=== PATIENT | female | born 1980 | race Caucasian/White ===

== ENCOUNTER 2025-01-08 17:52 | Emergency (ER) | payer BC ==
--- OUTSIDE RECORDS SUMMARY | 2025-01-08 17:58 | XMS REPORT | Continuity of Care Document ---
Author Name Unknown Address [address] [place] [address] [facility] [place] Address 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 Role Phone Caseyradhaiván Jennifer MORROW Primary Care Physician KATINA VICTORIA Attending Clinician Unavailable SHEA BRICEÑO Attending Clinician Unavailable SHILO MUNROE Attending Clinician Unavailab SHILO Carias Attending Clinician Unavailab le Doctor Unassigned, Smiley Attending Clinician U Shilo Morin DO Attending Clinician [phone] SHERIDAN ANTONY Attending Clinician Unavailable Sheridan Antony PA-C Attending Clinician [phone] Unknown, Attending Attending Clinician Unavailab Mikey Masters Attending Clinician [phone] MIKEY RUBIN Attending Clinician Unavailable KATINA VICTORIA Attending Clinician Unavailable Doctor Unassigned, Smiley Attending Clinician U arianna 2, [facility] Attending Clinician Unavailable Pob, [facility] Main Attending Clinician UnavailLin Mai MD Attending Clinician [phone] LIN WEEKS Attending Clinician UnavailSheridan Olmedo PA-C Attending Clinician [phone] FERNANDO IBARRA Attending Clinician Unavailab [facility] Attending Clinician Un available Unknown, Attending Attending Clinician Unavailab le UNKNOWN, ATTENDING Attending Clinician Unavailab Mikey Masters Attending Clinician RACHEL POSEY Attending Clinician Unavailable KATINA VICTORIA Admitting Clinician Unavailable SHEA BRICEÑO Admitting Clinician Unavailable SHERIDAN ANTONY Admitting Clinician Unavailable Payers Payer Name Policy Type Policy Number Effective Date Expirati on Date Source [place] [employer] [facility] [id number] 00:00:00 Problems Condition Name Condition Details Condition Category Status Onset Date Resolution Date Last Treatment Date Treating Clinician Comments Source 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) Disease Active 2021-10 00:00: 00 [facility] Severe dysplasia of cervix (DENISE III) Severe dysplasia of cervix (DENISE III) Disease Active 2021-10 00:00: 00 [facility] Severe dysplasia of cervix (DENISE III) Severe dysplasia of cervix (DEINSE III) Disease Active 2021-10 00:00: 00 [facility] Morbid obesity with body mass index of 40.0-49.9 Morbid obesity with body mass index of 40.0-49.9 Disease Active 2021-10 00:00: 00 [facility] Contracept an management Contracept an management Disease Active 2014-10 00:00: 00 [facility] Anxiety Anxiety Disease Active 2014-10 00:00: 00 [facility] HTN (hypertens ion) HTN (hypertens ion) Disease Active 2014-10 00:00: 00 [facility] IBS (irritable bowel syndrome) IBS (irritable bowel syndrome) Disease Active 2014-10 00:00: 00 [facility] Dermatophy tosis of nail Dermatophy tosis of nail Disease Active 2014-10 00:00: 00 [facility] Allergies, Adverse Reactions, Alerts Allergy Name Allergy Type Status Severity Reaction(s) Onset Date Inactive Date Treating Clinician Comments Source NO KNOWN ALLERGIE S Drug Class Active [facility] Social History Social Habit Start Date Stop Date Quantity Comments Source Sexual orientation U [facility] Cigarettes smoked current (pack per day) - Reported 2024-10-12 00:00:00 2024-10-12 00:00:00 [facility] Cigarette pack-years 2024-10-12 00:00:00 2024-10-12 00:00:00 [facility] Tobacco use and exposure 2024-10-12 00:00:00 2024-10-12 00:00:00 Smokeless tobacco non-user [facility] History of Social function 2024-10-12 00:00:00 2024-10-12 00:00:00 [facility] Alcoholic beverage intake 2024-10-12 00:00:00 2024-10-12 00:00:00 0 /d [facility] Exposure to SARS-CoV-2 (event) 2023-01-12 00:00:00 2023-01-22 13:24:00 Not sure [facility] Alcohol intake 2023-01-22 00:00:00 2023-01-22 00:00:00 0 /d [facility] Tobacco Comment 2022-08-01 00:00:00 2022-08-01 00:00:00 5 cigarettes a day on and off 10 years [facility] History of tobacco use 2006-02-14 00:00:00 2016-02-15 00:00:00 Cigarette Smoker [facility] Sex assigned at 1980 00:00:00 1980 00:00:00 [facility] Smoking Status Start Date Stop Date Source Ex-smoker 2024-10-12 00:00:00 2024-10-12 00:00:00 [facility] Medications Ordered Medication Name Filled Medication Name Start Date Stop Date Current Medication? Ordering Clinician Indication Dosage Frequency Signature (SIG) Comments Components Source budesonide- formoteroL (SYMBICORT) 160-4.5 mcg/actuati on inhaler 2023-10 00:00: 00 Yes [id number] 2{puff} Inhale 2 Puffs in the morning and 2 Puffs in the evening. [facility] albuterol 90 mcg/actuati on inhaler 2023-10 00:00: 00 Yes [id number] 2{puff} Inhale 2 Puffs every 6 (six) hours as needed for Wheezing or Shortness of Breath. [facility] naproxen 500 mg tablet 07-19 00:00: 00 10-12 00:00 :00 No [id number] 500mg Take 1 tablet by mouth in the morning and 1 tablet in the evening. Take with meals. [facility] predniSONE 20 mg tablet 07-19 00:00: 00 07-25 04:59 :00 No [id number] 20mg Take 1 tablet by mouth in the morning and 1 tablet in the evening. Do all this for 5 days. [facility] dexamethaso ne (DECADRON) injection 10 mg 07-10 22:45: 00 07-10 21:53 :00 No [id number] 10mg 10 mg, Intramuscu lar, ONCE, 1 dose, On Sat07/10/24 at 1745, Routine [facility] ipratropium -albuteroL (DUONEB) 0.5 mg-3 mg(2.5 mg base)/3 mL nebulizer solution 3 mL 07-10 22:30: 00 07-10 21:54 :00 No [id number] 3mL 3 mL, Inhalation , ONCE, 1 dose, On Sat07/10/24 at 1730, Routine [facility] albuterol (PROVENTIL) 2.5 mg /3 mL (0.083 %) nebulizer solution 2.5 mg 07-10 22:30: 00 07-10 21:54 :00 No [id number] 2.5mg 2.5 mg, Inhalation , ONCE, 1 dose, On Sat07/10/24 at 1730, Routine [facility] predniSONE 20 mg tablet 07-10 00:00: 00 07-16 04:59 :00 No [id number] 40mg Take 2 tablets by mouth in the morning for 5 days. [facility] medroxyPROG ESTERone (PROVERA) 10 mg tablet 04-14 00:00: 00 04-25 04:59 :00 No [id number] 10mg Take 1 tablet by mouth in the morning for 10 days. [facility] LORazepam (ATIVAN) 1 mg tablet 11-12 00:00: 00 11-13 05:59 :00 No [id number] 1mg Take 1 tablet by mouth once now for 1 dose. [facility] montelukast 10 mg tablet 2021-10 00:00: 00 Yes TAKE ONE (1) TABLET(S) BY MOUTH DAILY AT BEDTIME. [facility] LAY OUT DRAFTER THYROID 15 mg tablet 2021-10 00:00: 00 07-19 00:00 :00 No 15mg Take 15 mg by mouth every morning. [facility] multivitami n tablet 2021-10 14:51: 42 09-11 00:00 :00 No 1{tbl} Take 1 tablet by mouth daily. [facility] atenoloL 50 mg tablet 2021-10 10:39: 46 Yes 50mg Take 50 mg by mouth in the morning and 50 mg in the evening. [facility] escitalopra m oxalate (LEXAPRO) 10 mg tablet 2021-10 10:39: 46 07-19 00:00 :00 No 10mg Take 10 mg by mouth in the morning. [facility] dextroamphe tamine-amph etamine 10 mg tablet 2021-10 10:39: 46 07-19 00:00 :00 No 10mg Take 10 mg by mouth every morning. [facility] LOESTRIN FE 1 mg-20 mcg (21)/75 mg (7) tablet 2021-10 00:00: 00 04-14 00:00 :00 No [id number] 1{tbl} Take 1 tablet by mouth in the morning. [facility] nystatin 100,000 unit/mL suspension 2021-10 00:00: 00 09-19 05:59 :00 No [id number] Take 5 mL by mouth 4 (four) times daily for 7 days. Gargle and swish around in mouth, retain in mouth as long as as possible and swallow. [facility] nystatin 100,000 unit/gram cream 2021-10 00:00: 00 09-11 00:00 :00 No [id number] Apply to area(s) 2 (two) times daily. [facility] multivitami n tablet 2021-10 16:35: 38 Yes 1{tbl} Take 1 tablet by mouth daily. [facility] amoxicillin -clavulanat e (AUGMENTIN) 875-125 mg per tablet 07-12 00:00: 00 07-23 04:59 :00 No [id number] 1{tbl} Take 1 tablet by mouth in the morning and 1 tablet in the evening. Do all this for 10 days. [facility] escitalopra m oxalate 20 mg tablet 9- 00:00: 00 09-11 00:00 :00 No 20mg Take 20 mg by mouth in the morning. [facility] &lt 8-03 00:00: 00 No 20 Dose Unknown 8-03 00:00: 00 No metoprolol succinate ER 50 mg tablet,exte nded release 24 hr 6-13 00:00: 00 No 1mg Dose Unknown 6-13 00:00: 00 No TAKE 1 TABLET BY MOUTH EVERY DAY 6-08 00:00: 00 No &lt 0 6-08 00:00: 00 No Lexapro 20 mg tablet 5-30 00:00: 00 No 1mg metoprolol succinate ER 50 mg tablet,exte nded release 24 hr 3-26 00:00: 00 No 1mg metoprolol succinate ER 50 mg tablet,exte nded release 24 hr 3-18 00:00: 00 No 1mg Lexapro 20 mg tablet 2022-0 3-18 00:00: 00 No 1mg Dose Unknown 0 3-18 00:00: 00 No Dose Unknown 0 3-18 00:00: 00 No Dose Unknown 0 3-18 00:00: 00 No Dose Unknown 0 3-05 00:00: 00 No metoprolol succinate ER 50 mg tablet,exte nded release 24 hr 0 2-28 00:00: 00 No 1mg Dose Unknown 0 2-03 00:00: 00 No Lexapro 20 mg tablet 1 2-30 00:00: 00 No 1mg Depo-Lens Examiner a 150 mg/mL intramuscul ar syringe 1 2-30 00:00: 00 No 1mg/mL Dose Unknown 2020-10 0-02 00:00: 00 No Depo-Lens Examiner a 150 mg/mL intramuscul ar syringe 0 6-29 00:00: 00 No 1mg/mL Dose Unknown 0 6-18 00:00: 00 No Dose Unknown 0 6-18 00:00: 00 No Provera 10 mg tablet 0 4-15 00:00: 00 No 1mg metoprolol succinate ER 50 mg tablet,exte nded release 24 hr 0 3-31 00:00: 00 No 1mg Dose Unknown 0 3-31 00:00: 00 No Diflucan 150 mg tablet 0 429 00:00: 00 No 1mg clarithromy denise 500 mg tablet 16 00:00: 00 No 1mg amoxicillin 500 mg tablet 16 00:00: 00 No 2mg lansoprazol e 30 mg capsule,del ayed release 16 00:00: 00 No 1mg Dose Unknown 15 00:00: 00 No prednisone 20 mg tablet 07-09 00:00: 00 No 2mg azithromyci n 250 mg tablet 07-09 00:00: 00 No mg prednisone 20 mg tablet 02-04 00:00: 00 No mg benzonatate 200 mg capsule 02-04 00:00: 00 No 1mg ProAir HFA 90 mcg/actuati on aerosol inhaler 02-04 00:00: 00 No 12mcg/a ctuatio n azithromyci n 250 mg tablet 02-04 00:00: 00 No mg clotrimazol e 1 % topical cream 2017-10 00:00: 00 No 1% Zithromax Z-Abelardo 250 mg tablet 2017-10 00:00: 00 No mg Tessalon Perles 100 mg capsule 2017-10 00:00: 00 No 1mg Diflucan 150 mg tablet 04-24 00:00: 00 No 1mg multivitami n tablet 2015-10 08:31: 51 Yes 1{tbl} Take 1 tablet by mouth daily. [facility] hyoscyamine (LEVSIN) 0.125 mg tablet 03-06 00:00: 00 09-11 00:00 :00 No [id number] .125mg Take 1 tablet by mouth as needed for Pain (scale 7-10). [facility] Immunizations Ordered Immunization Name Filled Immunization Name Date Status Comments Source SARS-COV-2 COVID-19 CASSANDRA/J&J VACCINE 2021-10-10 00:00:00 Completed [facility] Influenza Virus Vaccine 2021-10-10 00:00:00 Completed [facility] SARS-COV-2 COVID-19 CASSANDRA/J&J VACCINE 2021-10-10 00:00:00 Completed [facility] Influenza Virus Vaccine 2021-10-10 00:00:00 Completed [facility] SARS-COV-2 COVID-19 CASSANDRA/J&J VACCINE 2021-10-10 00:00:00 Completed [facility] Influenza Virus Vaccine 2021-10-10 00:00:00 Completed [facility] SARS-COV-2 COVID-19 CASSANDRA/J&J VACCINE 2021-10-10 00:00:00 Completed [facility] Influenza Virus Vaccine 2021-10-10 00:00:00 Completed [facility] SARS-COV-2 COVID-19 CASSANDRA/J&J VACCINE 2021-10-10 00:00:00 Completed [facility] Influenza Virus Vaccine 2021-10-10 00:00:00 Completed [facility] SARS-COV-2 COVID-19 CASSANDRA/J&J VACCINE 2021-10-10 00:00:00 Completed [facility] Influenza Virus Vaccine 2021-10-10 00:00:00 Completed [facility] SARS-COV-2 COVID-19 CASSANDRA/J&J VACCINE 2021-10-10 00:00:00 Completed [facility] Influenza Virus Vaccine 2021-10-10 00:00:00 Completed [facility] SARS-COV-2 COVID-19 CASSANDRA/J&J VACCINE 2021-10-10 00:00:00 Completed [facility] Influenza Virus Vaccine 2021-10-10 00:00:00 Completed [facility] SARS-COV-2 COVID-19 CASSANDRA/J&J VACCINE 2021-10-10 00:00:00 Completed [facility] Influenza Virus Vaccine 2021-10-10 00:00:00 Completed [facility] SARS-COV-2 COVID-19 CASSANDRA/J&J VACCINE 2021-10-10 00:00:00 Completed [facility] Influenza Virus Vaccine 2021-10-10 00:00:00 Completed [facility] SARS-COV-2 COVID-19 CASSANDRA/J&J VACCINE 2021-10-10 00:00:00 Completed [facility] Influenza Virus Vaccine 2021-10-10 00:00:00 Completed [facility] SARS-COV-2 COVID-19 CASSANDRA/J&J VACCINE 2021-10-10 00:00:00 Completed [facility] Influenza Virus Vaccine 2021-10-10 00:00:00 Completed [facility] SARS-COV-2 COVID-19 CASSANDRA/J&J VACCINE 2021-10-10 00:00:00 Completed [facility] Influenza Virus Vaccine 2021-10-10 00:00:00 Completed [facility] SARS-COV-2 COVID-19 CASSANDRA/J&J VACCINE 2021-10-10 00:00:00 Completed [facility] Influenza Virus Vaccine 2021-10-10 00:00:00 Completed [facility] SARS-COV-2 COVID-19 CASSANDRA/J&J VACCINE 2021-10-10 00:00:00 Completed [facility] Influenza Virus Vaccine 2021-10-10 00:00:00 Completed [facility] SARS-COV-2 COVID-19 CASSANDRA/J&J VACCINE 2021-10-10 00:00:00 Completed [facility] Influenza Virus Vaccine 2021-10-10 00:00:00 Completed [facility] SARS-COV-2 COVID-19 CASSANDRA/J&J VACCINE 2021-10-10 00:00:00 Completed [facility] Influenza Virus Vaccine 2021-10-10 00:00:00 Completed [facility] SARS-COV-2 COVID-19 CASSANDRA/J&J VACCINE 2021-10-10 00:00:00 Completed Influenza Virus Vaccine 2021-10-10 00:00:00 Completed SARS-COV-2 COVID-19 CASSANDRA/J&J VACCINE 2021-10-10 00:00:00 Completed Influenza Virus Vaccine 2021-10-10 00:00:00 Completed [facility] COVID-19 Vaccine 2021-01-06 00:00:00 Completed SARS-COV-2 COVID-19 CASSANDRA/J&J VACCINE 2021-01-06 00:00:00 Completed [facility] SARS-COV-2 COVID-19 CASSANDRA/J&J VACCINE 2021-01-06 00:00:00 Completed [facility] SARS-COV-2 COVID-19 CASSANDRA/J&J VACCINE 2021-01-06 00:00:00 Completed [facility] SARS-COV-2 COVID-19 CASSANDRA/J&J VACCINE 2021-01-06 00:00:00 Completed [facility] SARS-COV-2 COVID-19 CASSANDRA/J&J VACCINE 2021-01-06 00:00:00 Completed [facility] SARS-COV-2 COVID-19 CASSANDRA/J&J VACCINE 2021-01-06 00:00:00 Completed [facility] SARS-COV-2 COVID-19 CASSANDRA/J&J VACCINE 2021-01-06 00:00:00 Completed [facility] SARS-COV-2 COVID-19 CASSANDRA/J&J VACCINE 2021-01-06 00:00:00 Completed [facility] SARS-COV-2 COVID-19 CASSANDRA/J&J VACCINE 2021-01-06 00:00:00 Completed [facility] SARS-COV-2 COVID-19 CASSANDRA/J&J VACCINE 2021-01-06 00:00:00 Completed [facility] SARS-COV-2 COVID-19 CASSANDRA/J&J VACCINE 2021-01-06 00:00:00 Completed [facility] SARS-COV-2 COVID-19 CASSANDRA/J&J VACCINE 2021-01-06 00:00:00 Completed [facility] SARS-COV-2 COVID-19 CASSANDRA/J&J VACCINE 2021-01-06 00:00:00 Completed [facility] SARS-COV-2 COVID-19 CASSANDRA/J&J VACCINE 2021-01-06 00:00:00 Completed [facility] SARS-COV-2 COVID-19 CASSANDRA/J&J VACCINE 2021-01-06 00:00:00 Completed [facility] SARS-COV-2 COVID-19 CASSANDRA/J&J VACCINE 2021-01-06 00:00:00 Completed [facility] SARS-COV-2 COVID-19 CASSANDRA/J&J VACCINE 2021-01-06 00:00:00 Completed [facility] SARS-COV-2 COVID-19 CASSANDRA/J&J VACCINE 2021-01-06 00:00:00 Completed [facility] SARS-COV-2 COVID-19 CASSANDRA/J&J VACCINE 2021-01-06 00:00:00 Completed [facility] SARS-COV-2 COVID-19 CASSANDRA/J&J VACCINE Unknown [facility]ine Unknown Completed [facility] SARS-COV-2 COVID-19 CASSANDRA/J&J VACCINE Unknown [facility] Influenza Virus Vaccine Unknown Completed [facility] SARS-COV-2 COVID-19 CASSANDRA/J&J VACCINE Unknown [facility] Influenza Virus Vaccine Unknown Completed [facility] SARS-COV-2 COVID-19 CASSANDRA/J&J VACCINE Unknown [facility] Influenza Virus Vaccine Unknown Completed [facility] SARS-COV-2 COVID-19 CASSANDRA/J&J VACCINE Unknown Com[facility] Influenza Virus Vaccine Unknown Completed [facility] SARS-COV-2 COVID-19 CASSANDRA/J&J VACCINE Unknown [facility] Influenza Virus Vaccine Unknown Completed [facility] SARS-COV-2 COVID-19 CASSANDRA/J&J VACCINE Unknown [facility] Influenza Virus Vaccine Unknown Completed [facility] SARS-COV-2 COVID-19 CASSANDRA/J&J VACCINE Unknown Com[facility] Influenza Virus Vaccine Unknown Completed [facility] SARS-COV-2 COVID-19 CASSANDRA/J&J VACCINE Unknown [facility] Influenza Virus Vaccine Unknown Completed [facility] Vital Signs Vital Name Observation Time Observation Value Comments S ource Systolic blood pressure 2024-10-12 20:14:00 142 mm[Hg] [facility] Diastolic blood pressure 2024-10-12 20:14:00 92 mm[Hg] [facility] Heart rate 2024-10-12 20:14:00 92 /min [facility] Respiratory rate 2024-10-12 20:14:00 19 /min [facility] Body height 2024-10-12 20:14:00 167.6 cm [facility] Body weight 2024-10-12 20:14:00 127.688 kg [facility] BMI 2024-10-12 20:14:00 45.44 kg/m2 [facility] Oxygen saturation in Arterial blood by Pulse oximetry 2024-10-12 20:14:00 98 /min [facility] Systolic blood pressure 2024-07-19 20:20:00 118 mm[Hg] [facility] Diastolic blood pressure 2024-07-19 20:20:00 79 mm[Hg] [facility] Heart rate 2024-07-19 20:20:00 95 /min [facility] Body temperature 2024-07-19 20:20:00 36.28 Xochitl [facility] Respiratory rate 2024-07-19 20:20:00 18 /min [facility] Body weight 2024-07-19 20:20:00 132.586 kg [facility] BMI 2024-07-19 20:20:00 47.18 kg/m2 [facility] Oxygen saturation in Arterial blood by Pulse oximetry 2024-07-19 20:20:00 98 /min [facility] Systolic blood pressure 2024-07-10 21:26:00 131 mm[Hg] [facility] Diastolic blood pressure 2024-07-10 21:26:00 83 mm[Hg] [facility] Heart rate 2024-07-10 21:26:00 97 /min [facility] Body temperature 2024-07-10 21:26:00 36.56 Xochitl [facility] Respiratory rate 2024-07-10 21:26:00 14 /min [facility] Body height 2024-07-10 21:26:00 167.6 cm [facility] Body weight 2024-07-10 21:26:00 130.182 kg [facility] BMI 2024-07-10 21:26:00 46.32 kg/m2 [facility] Oxygen saturation in Arterial blood by Pulse oximetry 2024-07-10 21:26:00 98 /min [facility] Systolic blood pressure 2024-04-14 20:30:00 123 mm[Hg] [facility] Diastolic blood pressure 2024-04-14 20:30:00 81 mm[Hg] [facility] Heart rate 2024-04-14 20:30:00 100 /min [facility] Body height 2024-04-14 20:30:00 165.1 cm [facility] Body weight 2024-04-14 20:30:00 135.716 kg [facility] BMI 2024-04-14 20:30:00 49.79 kg/m2 [facility] Systolic blood pressure 2023-01-22 18:42:00 125 mm[Hg] [facility] Diastolic blood pressure 2023-01-22 18:42:00 85 mm[Hg] [facility] Heart rate 2023-01-22 18:42:00 76 /min [facility] Body temperature 2023-01-22 18:42:00 36.83 Xochitl [facility] Body height 2023-01-22 18:42:00 165.1 cm [facility] Body weight 2023-01-22 18:42:00 128.912 kg [facility] BMI 2023-01-22 18:42:00 47.29 kg/m2 [facility] Systolic blood pressure 2022-12-10 15:45:00 130 mm[Hg] [facility] Diastolic blood pressure 2022-12-10 15:45:00 85 mm[Hg] [facility] Heart rate 2022-12-10 15:42:00 80 /min [facility] Body temperature 2022-12-10 15:42:00 36.56 Xochitl [facility] Respiratory rate 2022-12-10 15:42:00 18 /min [facility] Body height 2022-12-10 15:42:00 165.1 cm [facility] Body weight 2022-12-10 15:42:00 127.733 kg [facility] BMI 2022-12-10 15:42:00 46.86 kg/m2 [facility] Systolic blood pressure 2022-11-01 21:41:00 120 mm[Hg] [facility] Diastolic blood pressure 2022-11-01 21:41:00 84 mm[Hg] [facility] Heart rate 2022-11-01 21:41:00 88 /min [facility] Body temperature 2022-11-01 21:41:00 36.67 Xochitl [facility] Body height 2022-11-01 21:41:00 165.1 cm [facility] Body weight 2022-11-01 21:41:00 127.279 kg [facility] BMI 2022-11-01 21:41:00 46.69 kg/m2 [facility] Systolic blood pressure 2022-10-17 17:04:00 128 mm[Hg] [facility] Diastolic blood pressure 2022-10-17 17:04:00 82 mm[Hg] [facility] Heart rate 2022-10-17 17:04:00 86 /min [facility] Body temperature 2022-10-17 17:04:00 36.83 Xochitl [facility] Respiratory rate 2022-10-17 17:04:00 18 /min [facility] Body height 2022-10-17 17:04:00 165.1 cm [facility] Body weight 2022-10-17 17:04:00 126.735 [facility] BMI 2022-10-17 17:04:00 46.49 kg/m2 [facility] Systolic blood pressure 2022-10-10 19:14:00 105 mm[Hg] [facility] Diastolic blood pressure 2022-10-10 19:14:00 72 mm[Hg] [facility] Heart rate 2022-10-10 19:14:00 71 /min [facility] Body temperature 2022-10-10 19:14:00 36.78 Xochitl [facility] Body height 2022-10-10 19:14:00 165.1 cm [facility] Body weight 2022-10-10 19:14:00 127.642 kg [facility] BMI 2022-10-10 19:14:00 46.83 kg/m2 [facility] Systolic blood pressure 2022-09-11 16:33:00 129 mm[Hg] [facility] Diastolic blood pressure 2022-09-11 16:33:00 84 mm[Hg] [facility] Heart rate 2022-09-11 16:33:00 79 /min [facility] Body temperature 2022-09-11 16:33:00 36.61 Xochitl [facility] Respiratory rate 2022-09-11 16:33:00 18 /min [facility] Body height 2022-09-11 16:33:00 165.1 cm [facility] Body weight 2022-09-11 16:33:00 130.092 kg [facility] BMI 2022-09-11 16:33:00 47.73 kg/m2 [facility] Systolic blood pressure 2022-08-01 21:35:00 159 mm[Hg] [facility] Diastolic blood pressure 2022-08-01 21:35:00 99 mm[Hg] [facility] Heart rate 2022-08-01 21:29:00 108 /min [facility] Body temperature 2022-08-01 21:29:00 36.94 Xochitl [facility] Respiratory rate 2022-08-01 21:29:00 17 /min [facility] Body weight 2022-08-01 21:29:00 127.461 kg [facility] BMI 2022-08-01 21:29:00 45.35 kg/m2 [facility] Oxygen saturation in Arterial blood by Pulse oximetry 2022-08-01 21:29:00 97 /min [facility] Systolic blood pressure 2022-07-12 22:10:00 173 mm[Hg] [facility] Diastolic blood pressure 2022-07-12 22:10:00 106 mm[Hg] [facility] Heart rate 2022-07-12 22:08:00 100 /min Un[facility] Body temperature 2022-07-12 22:08:00 37.11 Xochitl [facility] Respiratory rate 2022-07-12 22:08:00 19 /min [facility] Body height 2022-07-12 22:08:00 167.6 cm [facility] Body weight 2022-07-12 22:08:00 125.919 kg [facility] BMI 2022-07-12 22:08:00 44.81 kg/m2 [facility] Oxygen saturation in Arterial blood by Pulse oximetry 2022-07-12 22:08:00 99 /min [facility] BP Systolic 2022-06-16 16:01:00 121 mm[Hg] BP Diastolic 2022-06-16 16:01:00 69 mm[Hg] Weight Measured 2022-06-16 16:01:00 280.40 pounds Height Measured 2022-06-16 16:01:00 64.41 inches Body Temperature 2022-06-16 16:01:00 98.50 degrees Heart Rate 2022-06-16 16:01:00 101.00 /min Respiratory Rate 2022-06-16 16:01:00 21.00 /min BP Systolic 2022-03-28 16:41:00 147 mm[Hg] BP Diastolic 2022-03-28 16:41:00 89 mm[Hg] Weight Measured 2022-03-28 16:41:00 248.80 pounds Height Measured 2022-03-28 16:41:00 64.41 inches Body Temperature 2022-03-28 16:41:00 98.30 degrees Heart Rate 2022-03-28 16:41:00 114.00 /min Respiratory Rate 2022-03-28 16:41:00 17.00 /min BP Systolic 2022-01-13 10:28:00 121 mm[Hg] BP Diastolic 2022-01-13 10:28:00 86 mm[Hg] Weight Measured 2022-01-13 10:28:00 277.60 pounds Height Measured 2022-01-13 10:28:00 64.41 inches Body Temperature 2022-01-13 10:28:00 98.10 degrees Heart Rate 2022-01-13 10:28:00 106.00 /min Respiratory Rate 2022-01-13 10:28:00 16.00 /min BP Systolic 2022-01-05 13:42:00 102 mm[Hg] BP Diastolic 2022-01-05 13:42:00 69 mm[Hg] Weight Measured 2022-01-05 13:42:00 277.20 pounds Height Measured 2022-01-05 13:42:00 64.41 inches Body Temperature 2022-01-05 13:42:00 98.20 degrees Heart Rate 2022-01-05 13:42:00 104.00 /min Respiratory Rate 2022-01-05 13:42:00 BP Systolic 2021-10-19 08:56:00 129 mm[Hg] BP Diastolic 2021-10-19 08:56:00 86 mm[Hg] Weight Measured 2021-10-19 08:56:00 266.20 pounds Height Measured 2021-10-19 08:56:00 64.41 inches Body Temperature 2021-10-19 08:56:00 98.20 degrees Heart Rate 2021-10-19 08:56:00 92.00 /min Respiratory Rate 2021-10-19 08:56:00 BP Systolic 2021-07-22 15:50:00 130 mm[Hg] BP Diastolic 2021-07-22 15:50:00 94 mm[Hg] Weight Measured 2021-07-22 15:50:00 247.80 pounds Height Measured 2021-07-22 15:50:00 64.41 inches Body Temperature 2021-07-22 15:50:00 98.40 degrees Heart Rate 2021-07-22 15:50:00 100.00 /min Respiratory Rate 2021-07-22 15:50:00 BP Systolic 2021-04-18 11:17:00 131 mm[Hg] BP Diastolic 2021-04-18 11:17:00 83 mm[Hg] Weight Measured 2021-04-18 11:17:00 248.20 pounds Height Measured 2021-04-18 11:17:00 64.41 inches Body Temperature 2021-04-18 11:17:00 98.70 degrees Heart Rate 2021-04-18 11:17:00 104.00 /min Respiratory Rate 2021-04-18 11:17:00 BP Systolic 2021-02-06 14:31:00 128 mm[Hg] BP Diastolic 2021-02-06 14:31:00 76 mm[Hg] Weight Measured 2021-02-06 14:31:00 246.80 pounds Height Measured 2021-02-06 14:31:00 64.41 inches Body Temperature 2021-02-06 14:31:00 99.40 degrees Heart Rate 2021-02-06 14:31:00 91.00 /min Respiratory Rate 2021-02-06 14:31:00 18.00 /min BP Systolic 2021-02-02 15:22:00 137 mm[Hg] BP Diastolic 2021-02-02 15:22:00 93 mm[Hg] Weight Measured 2021-02-02 15:22:00 248.20 pounds Height Measured 2021-02-02 15:22:00 64.41 inches Body Temperature 2021-02-02 15:22:00 98.60 degrees Heart Rate 2021-02-02 15:22:00 94.00 /min Respiratory Rate 2021-02-02 15:22:00 17.00 /min BP Systolic 2021-01-18 16:56:00 141 mm[Hg] BP Diastolic 2021-01-18 16:56:00 101 mm[Hg] Weight Measured 2021-01-18 16:56:00 246.00 pounds Height Measured 2021-01-18 16:56:00 64.41 inches Body Temperature 2021-01-18 16:56:00 98.10 degrees Heart Rate 2021-01-18 16:56:00 93.00 /min Respiratory Rate 2021-01-18 16:56:00 16.00 /min Procedures Procedure Date / Time Performed Performing Clinician Source XR CHEST 2 [facility] 2023-07-31 22:35:00 Bertrand Erickson [facility] GLYCOSYLATED HEMOGLOBIN (A1C) 2023-07-31 22:35:00 Bertrand Erickson [facility] PHYSICIAN ORDERS 2023-07-31 05:01:00 Doctor Unas signed, Smiley [facility] DISCLOSURE AND CONSENT MEDICAL & SURGICAL PROCEDURES - [facility] 2022-12-10 06:01:00 Doctor Unassigned, Smiley [facility] POCT TEST 2022-12-10 00:00:00 Katina Victoria [facility] EXTERNAL PROVIDER RECORDS 2022-10-23 06:01:00 Doctor Unassigned, Smiley [facility] ASSIGNMENT OF BENEFITS 2022-10-12 16:14:15 Docto r Unassigned, Smiley [facility] DISCLOSURE AND CONSENT MEDICAL & SURGICAL PROCEDURES - [facility] 2022-10-10 06:01:00 Doctor Unassigned, Smiley [facility] POCT TEST 2022-10-10 00:00:00 Katina Victoria [facility] LAB ONLY PAP SMEAR-LIQUID BASED 2022-09-11 16:49:00 Sheridan Antony [facility] HIGH RISK HPV-THIN PREP 2022-09-11 16:49:00 Sheridan Antony [facility] PAP SMEAR-LIQUID BASED-CP 2022-09-11 16:49:00 Sheridan Antony [facility] AUTHORIZATION TO RELEASE PHI TO [facility] 2022-09-11 06:01:00 Doctor Unassigned, Smiley [facility] POCT MOLECULAR FLU 2022-07-12 23:09:00 Unknown, Attend ing [facility] POCT MOLECULAR STREP 2022-07-12 22:42:00 Unknown, Atte julianing [facility] POCT SARS-COV-2 ANTIGEN (BINAX NOW) 2022-07-12 22:34:00 Mikey Rubin [facility] CONSENT/REFUSAL FOR DIAGNOSIS AND TREATMENT 2022-07-12 21:55:00 Doctor Unassigned, Smiley [facility] Plan of Care Planned Activity Planned Date Details Comments Source Goal Plan of Care Note [code = 99840-4] Goal Plan of Care Note [code = 99059-6] Goal Plan of Care Note [code = 43001-5] Goal Plan of Care Note [code = 40834-4] Goal Plan of Care Note [code = 70405-2] Goal Plan of Care Note [code = 73946-4] Goal Plan of Care Note [code = 85141-0] Goal Plan of Care Note [code = 64179-9] Goal Plan of Care Note [code = 50529-8] Goal Plan of Care Note [code = 24437-2] Goal Plan of Care Note [code = 05769-5] Goal Plan of Care Note [code = 63115-2] Goal Plan of Care Note [code = 84466-2] Goal Plan of Care Note [code = 10110-6] Goal Plan of Care Note [code = 77524-3] Goal Plan of Care Note [code = 70421-8] Goal Plan of Care Note [code = 98900-2] Goal Plan of Care Note [code = 45546-1] Goal Plan of Care Note [code = 09299-0] Goal Plan of Care Note [code = 03908-5] Goal Plan of Care Note [code = 18610-1] Goal Plan of Care Note [code = 40147-3] Goal Plan of Care Note [code = 15012-8] Goal Plan of Care Note [code = 27096-1] Encounters Start Date/Time End Date/Time Encounter Type Admission Type Attending Clinicians Care Facility Care Department Encounter ID Source 2022-11-02 07:56:43 Outpatient R KATINA VICTORIA [facility] 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 [id number] [facility] 2025-01-05 13:00:00 2025-01-05 13:00:00 Outpatient R SHILO MUNROE SHIWAN [facility] [id number] [facility] 2024-11-04 00:00:00 2024-12-05 18:15:45 Patient Secure Msg Doctor Unassigned, Smiley Doctor Unassigned, Smiley [facility] 1.2.840.114 350.1.13.10 4.2.7.2.686 [id number] [facility] 2024-11-05 14:30:00 2024-11-05 14:30:00 Outpatient R [facility] [id number] [facility] 2024-10-29 15:00:00 2024-10-29 15:00:00 Outpatient R [facility] [id number] [facility] 2024-10-12 14:00:00 2024-10-12 14:36:40 Outpatient R SHILO MUNROE SHIWAN [facility] [id number] [facility] 2024-10-12 14:00:00 2024-10-12 14:36:40 Office Visit Shilo Munroe [facility] 1.2.840.114 350.1.13.10 4.2.7.2.686 [id number] [facility] 2024-07-19 15:20:00 2024-07-19 16:25:56 Outpatient R SHERIDAN ANTONY [facility] [id number] [facility] 2024-07-19 15:20:00 2024-07-19 15:40:00 Urgent Care Sheridan Antony Unknown, Attending [facility] 1..840.114 350.1.13.10 4.2.7.2.686 [id number] [facility] 2024-07-10 16:39:58 2024-07-10 23:59:00 Hospital Encounter Mikey Rubin [facility] 1..840.114 350.1.13.10 4.2.7.2.686 [id number] [facility] 2024-07-10 16:20:00 2024-07-10 17:35:13 Outpatient R MIKEY RUBIN [facility] [id number] [facility] 2024-07-10 16:20:00 2024-07-10 16:40:00 Urgent Care Mikey Rubin Unknown, Attending [facility] 1..840.114 350.1.13.10 4.2.7.2.686 [id number] [facility] 2024-06-18 08:30:00 2024-06-18 08:30:00 Outpatient R KATINA VICTORIA VIEN [facility] [id number] [facility] 2024-04-17 00:00:00 2024-05-23 18:24:56 Patient Secure Msg Doctor Unassigned, Smiley [facility] 1..840.114 350.1.13.10 4.2.7.2.686 [id number] [facility] 2024-05-15 10:00:00 2024-05-15 10:00:00 Outpatient SHEA PRUITT [facility] [id number] [facility] 2024-05-07 12:40:49 2024-05-07 23:59:00 Outpatient SHEA PRUITT [facility] [id number] [facility] 2024-05-07 12:40:49 2024-05-07 23:59:00 Hospital Encounter Shea Briceño [facility] 1.2.840.114 350.1.13.10 4.2.7.2.686 [id number] [facility] 2024-05-01 00:00:00 2024-05-01 00:00:00 Outpatient R SHEA BRICEÑO [facility] [id number] [facility] 2024-04-20 00:00:00 2024-04-20 00:00:00 Outpatient R SHEA BRICEÑO [facility] [id number] [facility] 2024-04-15 00:00:00 2024-04-16 14:59:54 Patient Secure Msg Shea Briceño [facility] 1.2.840.114 350.1.13.10 4.2.7.2.686 [id number] [facility] 2024-04-14 16:00:00 2024-04-14 16:23:50 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 2, [facility] 1.2.840.114 350.1.13.10 4.2.7.2.686 [id number] [facility] 2024-04-14 15:30:00 2024-04-14 16:02:42 Outpatient R SHEA BRICEÑO [facility] [id number] [facility] 2024-04-14 15:30:00 2024-04-14 16:02:42 Office Visit Shea Briceño [facility] 1.2.840.114 350.1.13.10 4.2.7.2.686 [id number] [facility] 2023-09-11 11:00:00 2023-09-11 11:00:00 Outpatient SHERIDAN LOPEZ [facility] [id number] [facility] 2023-07-31 17:00:00 2023-07-31 17:15:00 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 Bipin, Ten Lab Todd Lin Weeks [facility] 1..840.114 350.1.13.10 4.2.7.2.686 [id number] [facility] 2023-07-31 17:00:00 2023-07-31 17:00:00 Outpatient LIN SUBRAMANIAN [facility] [id number] [facility] 2023-07-31 00:00:00 2023-07-31 00:00:00 Orders Only Doctor Unassigned, Smiley [facility] 1..840.114 350.1.13.10 4.2.7.2.686 [id number] [facility] 2023-01-22 13:30:00 2023-01-22 13:55:10 Outpatient R KATINA VICTORIA [facility] [id number] [facility] 2023-01-22 13:30:00 2023-01-22 13:55:10 Office Visit Katina Victoria [facility] 1..840.114 350.1.13.10 4.2.7.2.686 [id number] [facility] 2022-12-18 14:00:00 2022-12-18 14:00:00 Outpatient R KATINA VICTORIA [facility] [id number] [facility] 2022-12-14 00:00:00 2022-12-14 00:00:00 Telephone Esme Katina [facility] 1..840.114 350.1.13.10 4.2.7.2.686 [id number] [facility] 2022-12-10 09:00:00 2022-12-10 10:56:11 Outpatient R KATINA VICTORIA [facility] [id number] [facility] 2022-12-10 09:00:00 2022-12-10 10:56:11 Office Visit Katina Victoria [facility] 1.2.840.114 350.1.13.10 4.2.7.2.686 [id number] [facility] 2022-12-10 00:00:00 2022-12-10 00:00:00 Orders Only Doctor Unassigned, Smiley [facility] 1.2.840.114 350.1.13.10 4.2.7.2.686 [id number] [facility] 2022-11-12 00:00:00 2022-11-12 00:00:00 Case Management Katina Victoria [facility] 1.2.840.114 350.1.13.10 4.2.7.2.686 [id number] [facility] 2022-11-12 00:00:00 2022-11-12 00:00:00 Telephone Katina Victoria [facility] 1.2.840.114 350.1.13.10 4.2.7.2.686 [id number] [facility] 2022-11-01 15:00:00 2022-11-01 15:54:48 Outpatient R KATINA VICTORIA [facility] [id number] [facility] 2022-11-01 15:00:00 2022-11-01 15:54:48 Office Visit Katina Victoria [facility] 1.2.840.114 350.1.13.10 4.2.7.2.686 [id number] [facility] 2022-11-01 00:00:00 2022-11-01 00:00:00 Prep For Surgery Victoria, Katina [facility] 1..840.114 350.1.13.10 4.2.7.2.686 [id number] [facility] 2022-10-23 00:00:00 2022-10-23 00:00:00 Orders Only Doctor Unassigned, Smiley [facility] 1.2840.114 350.1.13.10 4.2.7.2.686 [id number] [facility] 2022-10-17 11:00:00 2022-10-17 11:27:29 Outpatient R ESME KATINA [facility] [id number] [facility] 2022-10-17 11:00:00 2022-10-17 11:27:29 Office Visit Katina Victoria [facility] 1..840.114 350.1.13.10 4.2.7.2.686 [id number] [facility] 2022-10-12 10:17:42 2022-10-12 23:59:00 [id number] 2022-10-12 10:17:42 2022-10-12 23:59:00 Hospital Encounter Sheridan Antony [facility] 1.840.114 350.1.13.10 4.2.7.2.686 [id number] [facility] 2022-10-12 00:00:00 2022-10-12 00:00:00 Orders Only Doctor Unassigned, Smiley [facility] 1.284.114 350.1.13.10 4.2.7.2.686 [id number] [facility] 2022-10-10 13:00:00 2022-10-10 14:39:28 Outpatient R ESME KATINA [facility] [id number] [facility] 2022-10-10 13:00:00 2022-10-10 14:39:28 Office Visit Katina Victoria Alex [facility] 1.2.840.114 350.1.13.10 4.2.7.2.686 [id number] [facility] 2022-10-10 00:00:00 2022-10-10 00:00:00 Orders Only Doctor Unassigned, Smiley [facility] 1.2.840.114 350.1.13.10 4.2.7.2.686 [id number] [facility] 2022-09-27 00:00:00 2022-09-27 00:00:00 Telephone Sheridan Antony [facility] 1.2.840.114 350.1.13.10 4.2.7.2.686 [id number] [facility] 2022-09-11 10:00:00 2022-09-11 10:56:44 Outpatient R CASSIA [facility] [id number] [facility] 2022-09-11 10:00:00 2022-09-11 10:56:44 Office Visit Cassia Sheridan [facility] 1.2.840.114 350.1.13.10 4.2.7.2.686 [id number] [facility] 2022-09-11 00:00:00 2022-09-11 00:00:00 Orders Only Doctor Unassigned, Smiley [facility] 1.2840.114 350.1.13.10 4.2.7.2.686 [id number] [facility] 2022-08-01 16:15:00 2022-08-01 16:46:05 Outpatient R FERNANDO IBARRA [facility] [id number] [facility] 2022-08-01 16:15:00 2022-08-01 16:35:00 Nurse Visit Nurse, [facility] Unknown, Attending [facility] 1.2.840.114 350.1.13.10 4.2.7.2.686 [id number] [facility] 2022-08-01 16:20:00 2022-08-01 16:20:00 Outpatient R UNKNOWN, ATTENDING [facility] [id number] [facility] 2022-07-12 17:00:00 2022-07-12 17:48:10 Outpatient R MIKEY RUBIN [facility] [id number] [facility] 2022-07-12 17:00:00 2022-07-12 17:48:10 Urgent Care Mikey Rubin Unknown, Attending [facility] 1.2.840.114 350.1.13.10 4.2.7.2.686 [id number] [facility] 2022-07-12 00:00:00 2022-07-12 00:00:00 Orders Only Doctor Unassigned, Smiley [facility] 1.2.840.114 350.1.13.10 4.2.7.2.686 [id number] [facility] 2022-06-16 00:00:00 2022-06-16 00:00:00 Outpatient Visit [id number] 00:00:00 2021-02-10 00:00:00 Outpatient R RACHEL POSEY [facility] [id number] [facility] Results Test Description Test Time Test Comments Results Resul t Comments Source XR CHEST 2 VW 2024-07-10 22:03:51 EXAM: XR CHEST 2 VW HISTORY: ?Chest pain. Ordering Physician: MIKEY RUBIN COMPARISON: none FINDINGS: Heart is normal in size. ?Lungs are clear of infiltrates bilaterally. Pleural surfaces are normal. ?There are degenerative changes of thethoracic spine. [facility] WITH [id number] 23:09:50* Test Item Value Reference Range Interpretation Comme nts WBC (test code = 6690-2) 11.88 See_Comment H [Automated messa ge] The system which generated this result transmitted reference range: 4.30 - 11.10 10*3/?L. The reference range was not used to interpret this result as normal/abnormal. RBC (test code = 789-8) 4.50 See_Comment [Automated messa ge] The system which generated this result transmitted reference range: 3.93 - 5.25 10*6/?L. The reference range was not used to interpret this result as normal/abnormal. HGB (test code = 718-7) 13.6 g/dL 11.6-15.0 HCT (test code = 4544-3) 42.0 % 35.7-45.2 MCV (test code = 787-2) 93.3 fL 80.6-95.5 MCH (test code = 785-6) 30.2 pg 25.9-32.8 MCHC (test code = 786-4) 32.4 g/dL 31.6-35.1 RDW-SD (test code = 28633-6) 44.5 fL 39.0-49.9 RDW-CV (test code = 788-0) 13.1 % 12.0-15.5 PLT (test code = 777-3) 222 See_Comment [Automated messa ge] The system which generated this result transmitted reference range: 166 - 358 10*3/?L. The reference range was not used to interpret this result as normal/abnormal. MPV (test code = 06986-0) 12.9 fL 9.5-12.9 NRBC/100 WBC (test code = 0589451192) 0.0 See_Comment [Automated [email or web address] ssage] The system which generated this result transmitted reference range: 0.0 - 10.0 /100 WBCs. The reference range was not used to interpret this result as normal/abnormal. NRBC x10^3 (test code = 3079726825) See_Comment [Automated messa ge] The system which generated this result transmitted reference range: 10*3/?L. The reference range was not used to interpret this result as normal/abnormal. GRAN MAT (NEUT) % (test code = 770-8) 63.1 % IMM GRAN % (test code = 2369965464) 0.60 % LYMPH % (test code = 736-9) 29.2 % MONO % (test code = 5905-5) 5.0 % EOS % (test code = 713-8) 1.7 % BASO % (test code = 706-2) 0.4 % GRAN MAT x10^3(ANC) (test code = 3193440898) 7.50 10*3/uL 1.88-7.09 H IMM GRAN x10^3 (test code = 5856812387) 0.07 10*3/uL 0.00-0.06 H LYMPH x10^3 (test code = 731-0) 3.47 10*3/uL 1.32-3.29 H MONO x10^3 (test code = 742-7) 0.59 10*3/uL 0.33-0.92 EOS x10^3 (test code = 711-2) 0.20 10*3/uL 0.03-0.39 BASO x10^3 (test code = 704-7) 0.05 10*3/uL 0.01-0.07 Lab Interpretation (test code = 83753-5) Abnormal [facility] [id number] 16:03:00* Test Item Value Reference Range Interpretation Comme nts POCT PREG (test code = 1605) Negative On board controls acceptable with C Line (test code = 3574) Yes POCT PREG LOT # (test code = 3575) POCT PREG TEST DATE ( test code = 3576) [facility] [id number] 16:03:00* Test Item Value Reference Range Interpretation Comme nts POCT PREG (test code = 1605) Negative On board controls acceptable with C Line (test code = 3574) Yes POCT PREG LOT # (test code = 3575) POCT PREG TEST DATE ( test code = 3576) [facility] [id number] 20:21:00* Test Item Value Reference Range Interpretation Comme nts POCT PREG (test code = 1605) Negative On board controls acceptable with C Line (test code = 3574) Yes POCT PREG LOT # (test code = 3575) POCT PREG TEST DATE ( test code = 3576) [facility] [id number] 20:21:00* Test Item Value Reference Range Interpretation Comme nts POCT PREG (test code = 1605) Negative On board controls acceptable with C Line (test code = 3574) Yes POCT PREG LOT # (test code = 3575) POCT PREG TEST DATE ( test code = 3576) [facility] [id number] 20:21:00* Test Item Value Reference Range Interpretation Comme nts POCT PREG (test code = 1605) Negative On board controls acceptable with C Line (test code = 3574) Yes POCT PREG LOT # (test code = 3575) POCT PREG TEST DATE ( test code = 3576) [facility] MOLECULAR [id number] 23:20:58* Test Item Value Reference Range Interpretation Comme nts POCT Molecular FluA (test co de = 13390-3) Negative Negative POCT Molecular FluB (test co de = 54653-3) Negative Negative Lab Interpretation (test cod e = 95932-1) Normal [facility] MOLECULAR [id number] 23:20:58* Test Item Value Reference Range Interpretation Comme nts POCT Molecular FluA (test co de = 73351-8) Negative Negative POCT Molecular FluB (test co de = 81100-9) Negative Negative Lab Interpretation (test cod e = 56570-4) Normal [facility] MOLECULAR [id number] 23:20:58* Test Item Value Reference Range Interpretation Comme nts POCT Molecular FluA (test co de = 98232-3) Negative Negative POCT Molecular FluB (test co de = 92452-3) Negative Negative Lab Interpretation (test cod e = 16728-0) Normal [facility] MOLECULAR [id number] 22:50:54* Test Item Value Reference Range Interpretation Comme nts POCT Molecular Strep (test c ode = 01856-2) Negative Negative Lab Interpretation (test cod e = 46808-4) Normal [facility] MOLECULAR [id number] 22:50:54* Test Item Value Reference Range Interpretation Comme nts POCT Molecular Strep (test c ode = 27243-2) Negative Negative Lab Interpretation (test cod e = 06407-0) Normal [facility] MOLECULAR [id number] 22:50:54* Test Item Value Reference Range Interpretation Comme nts POCT Molecular Strep (test c ode = 99605-5) Negative Negative Lab Interpretation (test cod e = 25267-6) [facility] SARS-COV-2 ANTIGEN (BINAX NOW)2022-07-12 22:34:00* Test Item Value Reference Range Interpretation Comme nts POCT SARS-COV-2 ANTIGEN (test code = 5076) Not Detected Not Detected On board controls acceptable with C Line (test code = 3574) Yes ROHINI (test code = ROHINI) accurate developme nt and interpretation of all internal controls Lab Interpretation (test code = 15739-2) [facility] SARS-COV-2 ANTIGEN (BINAX NOW)2022-07-12 22:34:00* Test Item Value Reference Range Interpretation Comme nts POCT SARS-COV-2 ANTIGEN (test code = 5076) Not Detected Not Detected On board controls acceptable with C Line (test code = 3574) Yes ROHINI (test code = ROHINI) accurate developme nt and interpretation of all internal controls Lab Interpretation (test code = 11049-3) [facility] SARS-COV-2 ANTIGEN (BINAX NOW)2022-07-12 22:34:00* Test Item Value Reference Range Interpretation Comme nts POCT SARS-COV-2 ANTIGEN (test code = 5076) Not Detected Not Detected On board controls acceptable with C Line (test code = 3574) Yes ROHINI (test code = ROHINI) accurate developme nt and interpretation of all internal controls Lab Interpretation (test code = 23928-0) [facility] [id number] 03:58:39* Test Item Value Reference Range Interpretation Comme nts HEMOGLOBIN A1c (test code = 45870) 5.7 % 4.2-5.6 H UNLESS OTHERWISE INDICATED, ALL TESTING PERFORMED [facility] [address] [place] [address] TIRE SERVICE SUPERVISOR: UNRULY FOX M.D. CLIA NUMBER [id number] [facility] [place]. [id number] HEMOGLOBIN [id number] 00:00:00* Test Item Value Reference Range Interpretation Comme [facility] HEMOGLOBIN A1c (test code = 83956) 5.7 % VITAMIN D, 25 [id number] 04:42:17* Test Item Value Reference Range Interpretation Comme nts VITAMIN D, 25 OH (test code = 4958) 8 NG/ML SEE BELOW L NOTE: 25-HYDR OXYVITAMIN D ASSAY INCLUDES 25-HYDROXYVITAMIN D2 AND D3. METHODOLOGY IS CHEMILUMINESCENT IMMUNOASSAY. INTERPRETIVE RANGES PEDIATRIC (<17 YEARS) . . . . . . . . . . . NG/ML 20-100ADULT: INSUFFICIENT . . . . . . . . . . . . . . NG/ML <20 SUBOPTIMAL . . . . . . . . . . . . . . . NG/ML 20-29 OPTIMAL . . . . . . . . . . . . . . . . . NG/ML 30-100 UNLESS OTHERWISE INDICATED, ALL TESTING PERFORMED [facility] [address] [place] [address] TIRE SERVICE SUPERVISOR: UNRULY FOX M.D. CLIA NUMBER [id number] [place]. [id number] LIPID [id number] 00:30:50* Test Item Value Reference Range Interpretation Comme nts CHOLESTEROL (test code = 2210) 184 MG/DL <200 TRIGLYCERIDES (test code = 2232) 63 MG/DL <150 HDL CHOLESTEROL (test code = 2220) 30 MG/DL >39 L CALC LDL CHOL (test code = 2237) 139 MG/DL <100 H NOTE: CALCULATED LDL IS BASED ON MAGGY-GOTTLIEB METHOD WHICHINCLUDES ADJUSTABLE TRIGLYCERIDE:VLDL CHOLESTEROL RATIO.THIS FACTOR VARIES BY MEASURED TRIGLYCERIDE AND NON-HDLCHOLESTEROL CONCENTRATIONS WITH INCREASED CALCULATED LDL SEENIN HIGHER TRIGLYCERIDE OR LOWER NON-HDL SPECIMENS. FOR MOREINFORMATION, SEE CLIENT ANNOUNCEMENT AT [email or web address] RISK RATIO LDL/HDL (test code = 2238) 4.63 RATIO <3.22 H COMPREHENSIVE METABOLIC [id number] 00:30:50* Test Item Value Reference Range Interpretation Comme nts GLUCOSE (test code = 2217) 168 MG/DL 70-99 H BUN (test code = 220) 10 MG/DL 6-20 CREATININE (test code = 2214) 0.85 MG/DL 0.60-1.30 eGFR (2020 CKD-EPI) (test code = 42419) 88 ML/MIN/1.73 >60 CALC BUN/CREAT (test code = 2235) 12 RATIO 6-28 SODIUM (test code = 223) 142 MEQ/L 133-146 POTASSIUM (test code = 2228) 4.1 MEQ/L 3.5-5.4 CHLORIDE (test code = 2215) 103 MEQ/L 95-107 CARBON DIOXIDE (test code = 2206) 16 MEQ/L 19-31 L CALCIUM (test code = 2209) 9.6 MG/DL 8.5-10.5 PROTEIN, TOTAL (test code = 2229) 6.9 G/DL 6.1-8.3 ALBUMIN (test code = 2201) 4.4 G/DL 3.5-5.2 CALC GLOBULIN (test code = 2240) 2.5 G/DL 1.9-3.7 CALC A/G RATIO (test code = 2234) 1.8 RATIO 1.0-2.6 BILIRUBIN, TOTAL (test code = 2207) 1.0 MG/DL See_Comment [Automated me ssage] The system which generated this result transmitted reference range: <=1.2. The reference range was not used to interpret this result as normal/abnormal. ALKALINE PHOSPHATASE (test code = 2204) 105 U/L 40-113 AST (test code = 2218) 16 U/L 9-40 ALT (test code = 2219) 17 U/L 5-40 LIPID [id number] 00:00:00* Test Item Value Reference Range Interpretation Comme nts CHOLESTEROL (test code = 2210) 184 MG/DL TRIGLYCERIDES (test code = 2232) 63 MG/DL HDL CHOLESTEROL (test code = 2220) 30 MG/DL CALC LDL CHOL (test code = 2237) 139 MG/DL RISK RATIO LDL/HDL (test cod e = 2238) 4.63 RATIO COMPREHENSIVE METABOLIC [id number] 00:00:00* Test Item Value Reference Range Interpretation Comme nts GLUCOSE (test code = 2217) 168 MG/DL BUN (test code = 2208) 10 MG/DL CREATININE (test code = 2214) 0.85 MG/DL eGFR (2020 CKD-EPI) (test co de = 09204) 88 ML/MIN/1.73 CALC BUN/CREAT (test code = 2235) 12 RATIO SODIUM (test code = 223) 142 MEQ/L POTASSIUM (test code = 2228) 4.1 MEQ/L CHLORIDE (test code = 2215) 103 MEQ/L CARBON DIOXIDE (test code = 2206) 16 MEQ/L CALCIUM (test code = 2209) 9.6 MG/DL PROTEIN, TOTAL (test code = 222) 6.9 G/DL ALBUMIN (test code = 2201) 4.4 G/DL CALC GLOBULIN (test code = 2240) 2.5 G/DL CALC A/G RATIO (test code = 2234) 1.8 RATIO BILIRUBIN, TOTAL (test code = 7) 1.0 MG/DL ALKALINE PHOSPHATASE (test code = 2204) 105 U/L AST (test code = 2218) 16 U/L ALT (test code = 2219) 17 U/L VITAMIN D, 25 [id number] 00:00:00* Test Item Value Reference Range Interpretation Comme [facility] VITAMIN D, 25 OH (test code = 4958) 8 NG/ML TSH, THIRD [id number] 03:11:27* Test Item Value Reference Range Interpretation Comme [facility] TSH, THIRD GENERATION (test code = 2821) 0.491 UIU/ML 0.400-4.100 [id number] 00:00:00* Test Item Value Reference Range Interpretation Comme [facility] TSH, THIRD GENERATION (test code = 2821) 0.491 UIU/ML CBC W/AUTO DIFF WITH [id number] 05:39:50* Test Item Value Reference Range Interpretation Comme [facility] WBC (test code = 1001) 11.0 K/UL 3.5-11.0 RBC (test code = 1002) 5.10 M/UL 3.80-5.40 HEMOGLOBIN (test code = 1003) 14.6 G/DL 11.5-15.5 HEMATOCRIT (test code = 1004) 43.9 % 34.0-45.0 MCV (test code = 1005) 86.1 fL 80.0-99.0 MCH (test code = 1006) 28.6 PG 25.0-33.0 MCHC (test code = 1007) 33.3 G/DL 31.0-36.0 RDW (test code = 1038) 13.0 % 11.5-15.0 NEUTROPHILS (test code = 1008) 62.5 % LYMPHOCYTES (test code = 1010) 29.7 % MONOCYTES (test code = 1011) 4.8 % EOSINOPHILS (test code = 1012) 2.1 % BASOPHILS (test code = 1013) 0.4 % IMMATURE GRANULOCYTES (test code = 1036) 0.5 % NUCLEATED RBCS (test code = 1065) 0.0 /100 WBC'S See_Comment [Automated messa ge] The system which generated this result transmitted reference range: 0.0. The reference range was not used to interpret this result as normal/abnormal. PLATELET COUNT (test code = 1015) 238 K/UL 130-400 ABSOLUTE NEUTROPHILS (test code = 1066) 6.86 K/UL 1.50-7.50 ABSOLUTE LYMPHOCYTES (test code = 1067) 3.26 K/UL 1.00-4.00 ABSOLUTE MONOCYTES (test code = 1068) 0.53 K/UL 0.20-1.00 ABSOLUTE EOSINOPHILS (test code = 1040) 0.23 K/UL 0.00-0.50 ABSOLUTE BASOPHILS (test code = 1069) 0.04 K/UL 0.00-0.20 ABS IMMATURE GRANULOCYTES (test code = 1020) 0.06 K/UL 0.00-0.10 ABS NUCLEATED RBCS (test code = 87685) 0.00 K/UL 0.00-0.11 CBC W/AUTO [id number] 00:00:00* Test Item Value Reference Range Interpretation Comme nts WBC (test code = 1001) 11.0 K/UL RBC (test code = 1002) 5.10 M/UL HEMOGLOBIN (test code = 1003) 14.6 G/DL HEMATOCRIT (test code = 1004) 43.9 % MCV (test code = 1005) 86.1 fL MCH (test code = 1006) 28.6 PG MCHC (test code = 1007) 33.3 G/DL RDW (test code = 1038) 13.0 % NEUTROPHILS (test code = 1008) 62.5 % LYMPHOCYTES (test code = 1010) 29.7 % MONOCYTES (test code = 1011) 4.8 % EOSINOPHILS (test code = 1012) 2.1 % BASOPHILS (test code = 1013) 0.4 % IMMATURE GRANULOCYTES (test code = 1036) 0.5 % NUCLEATED RBCS (test code = 1065) 0.0 /100WBC'S PLATELET COUNT (test code = 1015) 238 K/UL ABSOLUTE NEUTROPHILS (test c ode = 1066) 6.86 K/UL ABSOLUTE LYMPHOCYTES (test c ode = 1067) 3.26 K/UL ABSOLUTE MONOCYTES (test cod e = 1068) 0.53 K/UL ABSOLUTE EOSINOPHILS (test c ode = 1040) 0.23 K/UL ABSOLUTE BASOPHILS (test cod e = 1069) 0.04 K/UL ABS IMMATURE GRANULOCYTES (t est code = 1020) 0.06 K/UL ABS NUCLEATED RBCS (test cod e = 42026) 0.00 K/UL SCR MAMM BILATERAL DAVID CAD [id number] 16:20:28 Name: Janny : 1980 Sex: F* - SCR MAMM BILATERAL DAVID CAD DIGITALBILATERAL FIRST EVER DIGITAL SCREENING MAMMOGRAM 3D/2D WITH CAD: 04/14/2021igital breast tomosynthesiswas performed in addition to routine CC and MLO views. Current mammographic images were evaluated by [employer] CAD (computer-aided detection) software. No prior exams were available for courtney cook. The tissue of both breasts is predominantly fatty. There is a benign intramammary node in the right breast. There also are benign calcifications in the left breast. No suspicious mass, architectural distortion, malignant type calcification, or lymph node abnormality detected. IMPRESSION: BENIGNThere is no mammographic evidence of malignancy. Resume annual screening mammography in one year. Stephanie Hutchins M.D. scg/penrad:04/17/2021 16:20:28 Requirements Manager: Saray Mortensen MM, [facility] Mammographyletter sent: BIRADS 1-2 Normal Mammogram BI-RADS: 2 BenignPAP TEST, THINPREP, [id number] 00:00:00* Test Item Value Reference Range Interpretation Comme nts SOURCE: (test code = 8001) Cervical/Endocervical SLIDES: (test code = 8011) 1 LMP: (test code = 8021) 2020 SPECIMEN ADEQUACY: (test code = 09530) (NOTE) INTERPRETATION: (test code = 88727) NILM/NO EPITH. ABNORMALITY;SEE BELOW OTHER COMMENTS: (test code = 8081) (NOTE) CASTING ASSISTANT: (test code = 8101) Vamshi Walls, CT(ASCP)IAC QC TECHNOLOGIST: (test code = 8111) Flavia EisenbergSCT(ASCP)CT(IAC ) LOCATION: (test code = 05645) (NOTE) CPT: (test code = 8140) (NOTE) HPV HIGH RISK WITH GENOTYPE, [id number] 00:00:00* Test Item Value Reference Range Interpretation Comme nts HPV HIGH RISK INTERP (test c ode = 96356) POSITIVE HPV 16 (test code = 14701) NEGATIVE HPV 18 (test code = 62340) NEGATIVE HPV, HR, OTHER GENOTYPES (te st code = 84562) POSITIVE VAGINAL PATHOGENS DNA [id number] 00:00:00* Test Item Value Reference Range Interpretation Comme nts LETICIA SPECIES (test code = 29179) NEGATIVE G. VAGINALIS (test code = 01863) NEGATIVE T. VAGINALIS (test code = 58240) NEGATIVE CBC W/AUTO [id number] 00:00:00* Test Item Value Reference Range Interpretation Comme nts WBC (test code = 1001) 14.6 K/UL RBC (test code = 1002) 4.91 M/UL HEMOGLOBIN (test code = 1003) 14.4 G/DL HEMATOCRIT (test code = 1004) 43.3 % MCV (test code = 1005) 88.2 fL MCH (test code = 1006) 29.3 PG MCHC (test code = 1007) 33.3 G/DL RDW (test code = 1038) 12.3 % NEUTROPHILS (test code = 1008) 61.5 % LYMPHOCYTES (test code = 1010) 29.6 % MONOCYTES (test code = 1011) 6.3 % EOSINOPHILS (test code = 1012) 2.1 % BASOPHILS (test code = 1013) 0.5 % PLATELET COUNT (test code = 1015) 238 K/UL SARS-CoV-2 (COVID-19) by RT-PCR (HIGH RISK)2020-11-26 00:00:00* Test Item Value Reference Range Interpretation Comme nts SARS-CoV-2 INTERPRETATION (t est code = 52479) NEGATIVE SOURCE (test code = 59821) NOT SPECIFIED HEMOGLOBIN [id number] 00:00:00* Test Item Value Reference Range Interpretation Comme nts HEMOGLOBIN A1c (test code = 58271) 5.0 % COMPREHENSIVE METABOLIC [id number] 00:00:00* Test Item Value Reference Range Interpretation Comme nts GLUCOSE (test code = 2217) 130 MG/DL BUN (test code = 2208) 12 MG/DL CREATININE (test code = 2214) 0.74 MG/DL eGFR AMER. (test cod e = 97871) 117 ML/MIN/1.73 eGFR NON- AMER. (test code = 86249) 101 ML/MIN/1.73 CALC BUN/CREAT (test code = 2235) 16 RATIO SODIUM (test code = 2231) 142 MEQ/L POTASSIUM (test code = 2228) 3.9 MEQ/L CHLORIDE (test code = 2215) 110 MEQ/L CARBON DIOXIDE (test code = 2206) 21 MEQ/L CALCIUM (test code = 2209) 8.7 MG/DL PROTEIN, TOTAL (test code = 2229) 6.4 G/DL ALBUMIN (test code = 2201) 4.2 G/DL CALC GLOBULIN (test code = 2240) 2.2 G/DL CALC A/G RATIO (test code = 2234) 1.9 RATIO BILIRUBIN, TOTAL (test code = 2207) 0.9 MG/DL ALKALINE PHOSPHATASE (test code = 2204) 87 U/L AST (test code = 2218) 12 U/L ALT (test code = 2219) 17 U/L LIPID [id number] 00:00:00* Test Item Value Reference Range Interpretation Comme nts CHOLESTEROL (test code = 2210) 151 MG/DL TRIGLYCERIDES (test code = 2232) 98 MG/DL HDL CHOLESTEROL (test code = 2220) 34 MG/DL CALC LDL CHOL (test code = 2237) 98 MG/DL RISK RATIO LDL/HDL (test cod e = 2238) 2.88 RATIO CBC W/AUTO [id number] 00:00:00* Test Item Value Reference Range Interpretation Comme nts WBC (test code = 1001) 10.3 K/UL RBC (test code = 1002) 4.95 M/UL HEMOGLOBIN (test code = 1003) 14.7 G/DL HEMATOCRIT (test code = 1004) 43.3 % MCV (test code = 1005) 87.5 fL MCH (test code = 1006) 29.7 PG MCHC (test code = 1007) 33.9 G/DL RDW (test code = 1038) 12.7 % NEUTROPHILS (test code = 1008) 63.7 % LYMPHOCYTES (test code = 1010) 26.9 % MONOCYTES (test code = 1011) 6.7 % EOSINOPHILS (test code = 1012) 2.2 % BASOPHILS (test code = 1013) 0.5 % PLATELET COUNT (test code = 1015) 199 K/UL H. PYLORI (BREATH)2020-02-04 00:00:00* Test Item Value Reference Range Interpretation Comme nts H. PYLORI (BREATH) (test cod e = 39731) POSITIVE COMPREHENSIVE METABOLIC [id number] 00:00:00* Test Item Value Reference Range Interpretation Comme nts GLUCOSE (test code = 2217) 94 MG/DL BUN (test code = 2208) 11 MG/DL CREATININE (test code = 2214) 0.79 MG/DL eGFR AMER. (test cod e = 13168) 109 ML/MIN/1.73 eGFR NON- AMER. (test code = 79549) 94 ML/MIN/1.73 CALC BUN/CREAT (test code = 2235) 14 RATIO SODIUM (test code = 2231) 143 MEQ/L POTASSIUM (test code = 2228) 4.5 MEQ/L CHLORIDE (test code = 2215) 103 MEQ/L CARBON DIOXIDE (test code = 2206) 24 MEQ/L CALCIUM (test code = 2209) 9.2 MG/DL PROTEIN, TOTAL (test code = 2229) 6.8 G/DL ALBUMIN (test code = 2201) 4.4 G/DL CALC GLOBULIN (test code = 2240) 2.4 G/DL CALC A/G RATIO (test code = 2234) 1.8 RATIO BILIRUBIN, TOTAL (test code = 2207) 1.3 MG/DL ALKALINE PHOSPHATASE (test code = 2204) 102 U/L AST (test code = 2218) 17 U/L ALT (test code = 2219) 22 U/L [id number] 00:00:00* Test Item Value Reference Range Interpretation Comme nts TSH, THIRD GENERATION (test code = 2821) 0.815 UIU/ML LIPID [id number] 00:00:00* Test Item Value Reference Range Interpretation Comme nts CHOLESTEROL (test code = 2210) 175 MG/DL TRIGLYCERIDES (test code = 2232) 72 MG/DL HDL CHOLESTEROL (test code = 2220) 34 MG/DL CALC LDL CHOL (test code = 2237) 127 MG/DL RISK RATIO LDL/HDL (test cod e = 2238) 3.72 RATIO HPV HIGH IF ABNORMAL [id number] 00:00:00* Test Item Value Reference Range Interpretation Comme nts HPV HIGH IF ABNORMAL THINPREP (test code = 10416) CRITERIA NOT MET ACUTE HEPATITIS [id number] 00:00:00* Test Item Value Reference Range Interpretation Comme nts HEPATITIS A IgM (test code = 45836) NON-REACTIVE HEPATITIS B CORE IgM (test c ode = 4664) NON-REACTIVE HEPATITIS B SURF AG (test co de = 2739) NON-REACTIVE HEPATITIS C ANTIBODY (test c ode = 4633) NON-REACTIVE INTERPRETATION HEPATITIS A: (test code = 2552) (NOTE) INTERPRETATION HEPATITIS B: (test code = 64708) (NOTE) INTERPRETATION HEPATITIS C: (test code = 94702) (NOTE) [id number] 00:00:00* Test Item Value Reference Range Interpretation Comme nts RPR RESULT (test code = 3501) NON-REACTIVE RPR TITER (test code = 3500) NOT INDIC. TITER GC AND CHLAMYDIA AMPLIFIED, [id number] 00:00:00* Test Item Value Reference Range Interpretation Comme nts GONORRHEA, TMA (test code = 32856) NEGATIVE CHLAMYDIA, TMA (test code = 22624) NEGATIVE HEMOGLOBIN [id number] 00:00:00* Test Item Value Reference Range Interpretation Comme nts HEMOGLOBIN A1c (test code = 25164) 5.3 % LIPID [id number] 00:00:00* Test Item Value Reference Range Interpretation Comme nts CHOLESTEROL (test code = 2210) 165 MG/DL TRIGLYCERIDES (test code = 2232) 77 MG/DL HDL CHOLESTEROL (test code = 2220) 28 MG/DL CALC LDL CHOL (test code = 2237) 122 MG/DL RISK RATIO LDL/HDL (test cod e = 2238) 4.34 RATIO [id number] 00:00:00* Test Item Value Reference Range Interpretation Comme [facility] TSH, THIRD GENERATION (test code = 2821) 1.530 UIU/ML HIV AB/AG COMBO RFLX [id number] 00:00:00* Test Item Value Reference Range Interpretation Comme [facility] HIV 1/2 4TH GEN, RFLX CONF ( test code = 3514) NON-REACTIVE PAP TEST, THINPREP, [id number] 00:00:00* Test Item Value Reference Range Interpretation Comme nts SOURCE: (test code = 8001) Cervical/Endocervical SLIDES: (test code = 8011) 1 LMP: (test code = 8021) 03/16/18 SPECIMEN ADEQUACY: (test code = 29747) (NOTE) INTERPRETATION: (test code = 91965) NO EPITHELIAL ABNORMALITY SEE BELOW OTHER COMMENTS: (test code = 8081) (NOTE) CASTING ASSISTANT: (test code = 8101) DORCAS [employer](ASCP) LOCATION: (test code = 10280) (NOTE) CPT: (test code = 8140) (NOTE) TEST, [id number] 00:00:00* Test Item Value Reference Range Interpretation Comme nts HCG, QUALITATIVE (test code = 2507) NEGATIVE Notes Date/Time Note Provider Source 2024-04-14 16:00:00 Images from the original note were not included. Venipuncture collection performed by clean technique on the right anticubitus. Total of 1 attempts were made. Slight pressure and a bandage/dressing were applied to the site(s). The patient experienced no complications. The following specimens were processed according to instructions and sent to [facility] laboratories per lab order on 04/14/2024: LT BLUE SST 2 RED LAV PPT DK GREEN (LiHep) DK GREEN (SodH) ARZOLA DK BLUE (K2) DK BLUE (S) ACD Blood Culture NIPT/NTD [facility]
[2025-01-08 19:38] LABS: Absolute Basophils 0.1 K/uL (0-0.5); Absolute Lymphocytes (CBC) 1.5 K/uL (0.7-4.9); Absolute Monocytes 1.3 K/uL (0.1-1.3); Basophils % 0.4 % (0-1.3); Eosinophils % 0.1 % (0-4.4); Hematocrit 53.5 % (36.0-45.0); Hemoglobin 17.4 g/dL (12.0-15.0); Lymphocytes % 6.9 % (15.3-44.8); MCHC 32.5 g/dL (32.0-36.0); MCV 89.4 fL (80-100); MPV 10.7 fL (7.6-11.3); Monocytes % 6.1 % (3.3-12.3); Neutrophils % 86.5 % (41.7-73.7); Nucleated Red Blood Cells % 0.1 % (0-0); Platelets 278 thou/uL (152-406); RBC Red Blood Cell Count 5.99 M/uL (3.86-4.86); Red Cell Distribution Width 14.2 % (12.1-15.2)
[2025-01-08 19:40] LABS: Blood Morphology Comment NOT SEEN (NOT SEEN); Platelet Estimate ADEQ; White Blood Cell Scan OK (OK)
[2025-01-08 19:54] LABS: Albumin 3.8 g/dL (3.4-5.0); Anion Gap 10.9 mEq/L (5.0-15.0); Bilirubin Total 1.5 mg/dL (0.2-1.0); Globulin 3.9 g/dL (2.3-3.5); Potassium 3.9 mEq/L (3.5-5.1); Protein, Total 7.7 g/dL (6.4-8.2)
[2025-01-08 20:58] LABS: Specific Gravity 1.026 (1.005-1.030)
[2025-01-08 20:59] LABS: Specific Gravity 1.026 (1.005-1.030); Sqamous Epithelial <5 /HPF (None Seen); Urine Bacteria <20 /HPF (<20); Urine Bilirubin NEGATIVE (Negative); Urine Blood 1+ (Negative); Urine Clarity Extremely Turbid (Clear); Urine Color Light-Yellow (Yellow); Urine Culture Reflex Order NOT NEEDED; Urine Glucose NEGATIVE (Negative); Urine Ketones NEGATIVE (Negative); Urine Microscopic Reflex YN ORDER UMIC; Urine Mucus Slight /HPF (None Seen); Urine Nitrite NEGATIVE (Negative); Urine Protein TRACE (Negative); Urine Urobilinogen Normal (Normal); Urine WBC <5 /HPF (<5); Urine WBC Clump Rare /HPF (None Seen)
[2025-01-08] MEDS ORDERED: ONDANSETRON 4 MG/2 ML VIAL ONE (21:13)
[2025-01-08] MEDS ORDERED: KETOROLAC 30 MG/ML INJ ONE (21:13)
[2025-01-08] MEDS ORDERED: FAMOTIDINE 20 MG/2 ML VIAL IV ONE (21:14)
[2025-01-08] MEDS ORDERED: NA CHLORIDE 0.9% 1,000 ML ONE (21:14)
--- NOTE | 2025-01-08 21:36 | RAD REPORT ---
EXAMINATION: CT ABDOMEN AND PELVIS WITH CONTRAST CLINICAL INDICATION: ABD PAIN TECHNIQUE: CT abdomen and pelvis was performed, after the administration of IV contrast, [facility]. Axial, sagittal and coronal reconstructions were obtained. One or more of the following dose reduction techniques were used: Automated exposure control, adjustment of the mA and k V according to patient size, and iterative reconstruction. Unless otherwise specified, incidental findings do not require dedicated imaging follow-up. COMPARISON: No prior exam. FINDINGS: LOWER CHEST: The visualized lung bases are clear. LIVER: Mild fatty liver is present. No focal lesion or biliary dilatation is seen. Grossly unremark able gallbladder. SPLEEN: Normal size. No focal lesion. PANCREAS: No mass, ductal dilation, or humza-pancreatic fluid. ADRENALS: Normal; no mass. KIDNEYS: Normal size and contour. No hydronephrosis. GASTROINTESTINAL TRACT: No evidence of free air, significant intra-abdominal free fluid, bowel obstru ction or abscess. Liquid stool throughout the colon is present suggesting diarrheal state. APPENDIX: Normal appendix. LYMPH NODES: No lymphadenopathy. MUSCULOSKELETAL: No acute or suspicious osseous abnormality. IMPRESSION: Liquid stool is seen throughout the colon suggesting diarrheal state.
--- NOTE | 2025-01-08 22:42 | EDPHYS ---
Physician Documentation [facility] Name: Janny Farrar Age: 44 yrs Sex: Female : 1980 Arrival Date: 01/08/2025 Time: 17:52 Bed 15 Private MD: ED Physician Gisella Lazo HPI: 01/08 18:01 This 44 yrs old Female presents to ER via Unassigned with complaints of Vomiting. kb 18:01 Pt is a 44 year old female who presents for nausea, vomiting, diarrhea and abd pain kb that started at 1330 today. States daughter was just diagnosed with the bailey virus. . 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 - Infectious Disease History:: Denies. - Social history:: Smoking status: Reported history of juuling and/or vaping. ROS: 18:01 Constitutional: As per HPI kb Exam: 22:55 Constitutional: This is a well developed, well nourished patient who is awake, alert, kb and in no acute distress. Head/Face: Normocephalic, atraumatic. ENT: Moist Mucous membranes Cardiovascular: Regular rate Respiratory: Respirations even and unlabored. No increased work of breathing. Talking in full sentences Skin: Warm, dry with normal turgor. Normal color. MS/ Extremity: Pulses equal, no cyanosis. Neurovascular intact. Full, normal range of motion. Neuro: Awake and alert, GCS 15, oriented to person, place, time, and situation. 22:55 Abdomen/GI: Inspection: obese Bowel sounds: normal, Palpation: soft, in all quadrants, moderate abdominal tenderness, in all quadrants, Vital Signs: 19:18 BP 137 / 65; Pulse 102; Resp 18; Temp 98.1; Pulse Ox 97% on R/A; Weight 125.65 kg; iw Height 5 ft. 5 in. ; Pain 7/10; 21:00 BP 129 / 95; Pulse 97; Resp 18; Pulse Ox 98% ; me1 22:00 BP 129 / 76; Pulse 88; Resp 16; Temp 98.2; Pulse Ox 98% ; me1 19:18 Body Mass Index 46.09 (125.65 kg, 165.1 cm) iw 19:18 Pain Scale: Adult iw MDM: 18:00 Medical Screening Exam initiated kb 22:41 Data reviewed: vital signs, nurses notes. Counseling: I had a detailed discussion with kb the patient and/or guardian regarding the historical points, exam findings, and any diagnostic results supporting the discharge/admit diagnosis, lab results, radiology results, the need for outpatient follow up, a family practitioner, to return to the emergency department if symptoms worsen or persist or if there are any questions or concerns that arise at home. ED course: Pt is tolerating po intake. States she feels much better. In agreement with outpatient follow up. 22:55 Differential diagnosis: Nonspecific abd pain, gastritis, viral gastroenteritis. kb Consideration of Admission/Observation Escalation of care including admission/observation considered. Admission considered but patient feeling better after treatment, tolerating p.o. intake. Discussed return precautions.. I considered the following discharge prescriptions or medication management in the emergency department Antibiotics: At this time antibiotics are not recommended. Historians other than the Patient: Parent: Mother. 01/08 18:03 Order name: CBC with Diff; Complete Time: 19:44 kb 01/08 18:03 Order name: CMP; Complete Time: 20:00 kb 01/08 18:03 Order name: Lipase; Complete Time: 20:00 kb 01/08 18:03 Order name: Test, Urine; Complete Time: 20:59 kb 01/08 18:03 Order name: Urinalysis w/ reflexes; Complete Time: 21:00 kb 01/08 19:41 Order name: CBC Smear Scan; Complete Time: 19:44 EDMS 01/08 18:03 Order name: CT Abd/Pelvis - IV Contrast Only; Complete Time: 21:37 kb 01/08 18:03 Order name: IV Saline Lock; Complete Time: 19:27 kb 01/08 18:03 Order name: Labs collected and sent; Complete Time: 19:27 kb Administered Medications: 21:31 Drug: Famotidine IVP 20 mg IVP once; dilute with 10 mL 0.9% NaCl; give over 2 minutes hb Route: IVP; Site: right antecubital; 22:22 Follow up: Response: No adverse reaction me1 21:31 Drug: TORadol - Ketorolac IVP 15 mg IVP once Route: IVP; Site: right antecubital; hb 22:22 Follow up: Response: No adverse reaction; Pain is decreased me1 21:31 Drug: Ondansetron IVP 4 mg IVP once; over 2 minutes Route: IVP; Site: right antecubital;hb 22:22 Follow up: Response: No adverse reaction; Nausea is decreased me1 21:31 Drug: NS 0.9% IV 1000 ml IV at 1 bolus Per protocol; to be given as a bolus over 60 hb minutes Route: IV; Rate: 1 bolus; Site: right antecubital; 22:26 Follow up: Response: No adverse reaction; IV Status: Completed infusion; IV Intake: me1 1000ml Disposition: 21:01 Co-signature as Attending Physician, Gisella Lazo MD I agree with the assessment and gb1 plan of care. I reviewed the patient's care provided by the Advanced Practice Provider and agree with the diagnosis and treatment plan. Disposition Summary: 01/08/25 22:42 Discharge Ordered Notes: Location: Home kb Condition: Stable kb Diagnosis - Noninfective gastroenteritis and colitis, unspecified kb Followup: kb - With: Emergency Department - When: As needed - Reason: Worsening of condition Followup: kb - With: Private Physician - When: 2 - 3 days - Reason: Recheck today's complaints, Continuance of care, Re-evaluation by your physician Discharge Instructions: - Discharge Summary Sheet kb - Food Choices to Help Relieve Diarrhea, Adult kb - Viral Gastroenteritis, Adult, [id number] kb Forms: - Medication Reconciliation Form kb - Antibiotic Education kb - Prescription Opioid Use kb - Patient Portal Instructions kb - Leadership Thank You Letter kb Prescriptions: - ondansetron 4 mg Oral Tablet,disintegrating - take 1 tablet ORAL route every 6 hours As needed; 20 tablet; Refills: 0, kb Product Selection Permitted Signatures: Dispatcher [employer] Leyda Dial, ODALYS-C RESULTS ENGINEER-Anna Bowers, RN RN Sharla Escobar RN RN Gisella Kent MD MD gb1 Fouzia Fernando RN me1 Corrections: (The following items were deleted from the chart) 18:03 18:03 CBC+H.LAB.BRZ ordered. EDMS EDMS 18:03 18:03 COMPREHENSIVE METABOLIC PANEL+C.LAB.BRZ ordered. EDMS EDMS 18:03 18:03 LIPASE+C.LAB.BRZ ordered. EDMS EDMS 18:03 18:03 Test, Urine+UC.LAB.BRZ ordered. EDMS EDMS 18:03 18:03 Urinalysis+U.LAB.BRZ ordered. EDMS EDMS
--- NOTE | 2025-01-08 22:42 | ER ---
Nurse's Notes [facility] Name: Janny Farrar Age: 44 yrs Sex: Female : 1980 Arrival Date: 01/08/2025 Time: 17:52 Bed 15 Private MD: Diagnosis: Noninfective gastroenteritis and colitis, unspecified Presentation: 01/08 18:00 Chief complaint: Patient states: n/v/d today. Coronavirus screen: Client presents with iw at least one sign or symptom that may indicate coronavirus-19. Ebola Screen: No symptoms or risks identified at this time. Initial Sepsis Screen: Does the patient meet any 2 criteria? No. Patient's initial sepsis screen is negative. Does the patient have a suspected source of infection? No. Patient's initial sepsis screen is negative. Risk Assessment: Do you want to hurt yourself or someone else?. Onset of symptoms was January 08, 2025. 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 - Infectious Disease History:: Denies. - Social history:: Smoking status: Reported history of juuling and/or vaping. Screenin:35 [facility] ED Fall Risk Assessment (Adult) History of falling in the last 3 months, me1 including since admission No falls in past 3 months (0 pts) Confusion or Disorientation No (0 pts) Intoxicated or Sedated No (0 pts) Impaired Gait No (0 pts) Mobility Assist Device Used No (0 pt) Altered Elimination No (0 pt) Score/Fall Risk Level 0 - 2 = Low Risk Maintained a safe environment, Provided non-skid footwear, Hourly rounding (assess needs \T\ fall precautionary measures) done. Abuse screen: Denies threats or abuse. Nutritional screening: No deficits noted. Tuberculosis screening: No symptoms or risk factors identified. Assessment: 21:35 General: Appears ill, well groomed, well developed, well nourished, Behavior is calm, me1 cooperative, appropriate for age, Reports n/v/d today. Pain: Complains of pain in epigastric area, right upper quadrant and left upper quadrant Pain does not radiate. Pain currently is 6 out of 10 on a pain scale. Quality of pain is described as crampy, Pain began gradually, Is continuous. Neuro: Level of Consciousness is awake, alert, obeys commands, Oriented to person, place, time, situation, Appropriate for age. Cardiovascular: Patient's skin is warm and dry. Respiratory: Airway is patent Respiratory effort is even, unlabored, Respiratory pattern is regular, symmetrical. GI: Abdomen is non-distended, Reports diarrhea, nausea, vomiting, since this morning. : No signs and/or symptoms were reported regarding the genitourinary system. EENT: No signs and/or symptoms were reported regarding the EENT system. Derm: Skin is intact, is healthy with good turgor, Skin is pink, warm \T\ dry. Musculoskeletal: No signs and/or symptoms reported regarding the musculoskeletal system. Vital Signs: 19:18 BP 137 / 65; Pulse 102; Resp 18; Temp 98.1; Pulse Ox 97% on R/A; Weight 125.65 kg; iw Height 5 ft. 5 in. ; Pain 7/10; 21:00 BP 129 / 95; Pulse 97; Resp 18; Pulse Ox 98% ; me1 22:00 BP 129 / 76; Pulse 88; Resp 16; Temp 98.2; Pulse Ox 98% ; me1 19:18 Body Mass Index 46.09 (125.65 kg, 165.1 cm) iw 19:18 Pain Scale: Adult iw ED Course: 17:57 Patient arrived in ED. mr 18:00 [facility]ango [facility] kb 18:00 Gisella Lazo MD is Attending Physician. kb 18:08 Radiology exam delayed due to lab results not completed at this time. test jc4 not completed at this time. IV insertion attempt and/or patient not having appropriate IV at this time. 19:13 Triage completed. iw 19:14 Radiology exam delayed due to lab results not completed at this time. (BUN/Creatinine) nj test not completed at this time. IV insertion attempt and/or patient not having appropriate IV at this time. 19:18 Arm band placed on. iw 19:27 Initial lab(s) drawn, by me, sent to lab. Inserted saline lock: 22 gauge in right iw antecubital area, using aseptic technique. Blood collected. Flushed with 10 mL NS. 21:11 Sharla Escobar, RN is Primary Nurse. hb 21:21 CT Abd/Pelvis - IV Contrast Only In Process Unspecified. EDMS 21:33 No provider procedures requiring assistance completed. me1 21:35 Patient has correct armband on for positive identification. Bed in low position. Call me1 light in reach. Side rails up X 1. Provided Education on: POC. Verbalized understanding.. Client placed on continuous cardiac and pulse oximetry monitoring. NIBP monitoring applied. Pulse ox on. NIBP on. Warm blanket given. 22:55 IV discontinued, intact, bleeding controlled, No redness/swelling at site. Pressure me1 dressing applied. Administered Medications: 21:31 Drug: Famotidine IVP 20 mg IVP once; dilute with 10 mL 0.9% NaCl; give over 2 minutes hb Route: IVP; Site: right antecubital; 22:22 Follow up: Response: No adverse reaction me1 21:31 Drug: TORadol - Ketorolac IVP 15 mg IVP once Route: IVP; Site: right antecubital; hb 22:22 Follow up: Response: No adverse reaction; Pain is decreased me1 21:31 Drug: Ondansetron IVP 4 mg IVP once; over 2 minutes Route: IVP; Site: right antecubital;hb 22:22 Follow up: Response: No adverse reaction; Nausea is decreased me1 21:31 Drug: NS 0.9% IV 1000 ml IV at 1 bolus Per protocol; to be given as a bolus over 60 hb minutes Route: IV; Rate: 1 bolus; Site: right antecubital; 22:26 Follow up: Response: No adverse reaction; IV Status: Completed infusion; IV Intake: me1 1000ml Medication: 21:35 VIS not applicable for this client. hb Intake: 22:26 IV: 1000ml; Total: 1000ml. me1 Outcome: 22:42 Discharge ordered by . thea 22:55 Discharged to home ambulatory, with family, me1 22:55 Condition: stable 22:55 Discharge instructions given to patient, family, Instructed on discharge instructions, follow up and referral plans. medication usage, Demonstrated understanding of instructions, follow-up care, medications, Prescriptions given X 1, 22:55 Patient left the ED. me1 Signatures: Dispatcher [employer] EDMS Leyda Tarango, MOLDER SHOULDER PAD-C MOLDER SHOULDER PAD-Ckb Kain, Maribeth, Reg Reg Anna Lopez, GISEL BATRES Sharla Escobar RN RN Eze Cortes Michelle, RN RN me1 Buster Son jc4 Corrections: (The following items were deleted from the chart) 21:23 18:00 Chief complaint: Patient states: n/v/d today [facility] 22:20 21:35 Patient has correct armband on for positive identification. Bed in low position. me1 Call light in reach. Side rails up X 1. 22:20 21:35 Provided Education on: POC. Verbalized understanding.. [facility] :20 21:35 Client placed on continuous cardiac and pulse oximetry monitoring. NIBP me1 monitoring applied. Pulse ox on. NIBP on. :20 21:35 Warm blanket given. me1 22: 21:00 BP 129 / 95; Pulse 97bpm; Resp 18bpm; Pulse Ox 98%; hb me1 22:21 21:35 General: Appears ill, well groomed, well developed, well nourished, Behavior is me1 calm, cooperative, appropriate for age, Reports n/v/d today 22:21 21:35 Pain: Complains of pain in epigastric area, right upper quadrant and left upper me1 quadrant Pain does not radiate. Pain currently is 6 out of 10 on a pain scale. Quality of pain is described as crampy, Pain began gradually, Is continuous, 22: 21:35 Neuro: Level of Consciousness is awake, alert, obeys commands, Oriented to me1 person, place, time, situation, Appropriate for age hb 22:21 21:35 Cardiovascular: Patient's skin is warm and dry. me1 22:21 21:35 Respiratory: Airway is patent Respiratory effort is even, unlabored, Respiratory nc1 pattern is regular, symmetrical, 22:21 21:35 GI: Abdomen is non-distended, Reports diarrhea, nausea, vomiting, since this me1 morning hb 22:21 21:35 : No signs and/or symptoms were reported regarding the genitourinary system. me1 22: 21:35 EENT: No signs and/or symptoms were reported regarding the EENT system. [facility] 22: 21:35 Derm: Skin is intact, is healthy with good turgor, Skin is pink, warm \T\ dry. [facility] 22: 21:35 Musculoskeletal: No signs and/or symptoms reported regarding the musculoskeletal nc1 system. 22:22 21:35 Patient has correct armband on for positive identification. Bed in low position. me1 Call light in reach. Side rails up X 1. me1 :22 21:35 No provider procedures requiring assistance completed. [facility] 22:22 21:35 [facility] ED Fall Risk Assessment (Adult) History of falling in the last 3 months, nc1 including since admission No falls in past 3 months (0 pts) Confusion or Disorientation No (0 pts) Intoxicated or Sedated No (0 pts) Impaired Gait No (0 pts) Mobility Assist Device Used No (0 pt) Altered Elimination No (0 pt) Score/Fall Risk Level 0 - 2 = Low Risk Maintained a safe environment, Provided non-skid footwear, Hourly rounding (assess needs \T\ fall precautionary measures) done, hb 22: 21:35 Abuse screen: Denies threats or abuse. [facility] 22:22 21:35 Nutritional screening: No deficits noted. [facility] : 21:35 Tuberculosis screening: No symptoms or risk factors identified. [facility] 22:44 22:00 BP 129 / 76; Pulse 88bpm; Resp 16bpm; Pulse Ox 98%; nc1 me1
[2025-01-08 23:16] VITALS: O2SAT 98
[2025-01-08 23:22] VITALS: BP 129/76; TEMP 98.2
== END 2025-01-08 22:55 | disposition home or self-care (01) ==
LOC: ER 17:52
DX: K52.9 Noninfective gastroenteritis and colitis, unspecified (principal)
CPT/HCPCS: 96361; 85025; 81001; 36415; 81025; 83690; 80053; 74177; 96375; 96374; 99284; Q9967; J2405; J7030